=== PATIENT | female | born 1980 | race Caucasian/White ===

== ENCOUNTER 2016-09-20 19:19 | Emergency (ER) | payer BC ==
[~2016-09-20] VITALS: Ht 157.5 cm; Wt 124.7 kg
[2016-09-20 19:25] VITALS: BP 152/87
--- NOTE | 2016-09-20 19:29 | NUR ---
PT [facility]. TAKEN TO BED 6
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
--- NOTE | 2016-09-20 19:44 | NUR ---
Patient being evaluated by DR. SIMPSON at bedside.
[2016-09-20] MEDS ORDERED: NACL 0.9% 1,000 ML IV SCH (19:49)
[2016-09-20] MEDS ORDERED: KETOROLAC 30 MG/ML VIAL IVP ONE (19:50)
[2016-09-20] MEDS ORDERED: ONDANSETRON 4 MG/2 ML VIAL IVP ONE (19:50)
--- NOTE | 2016-09-20 20:10 | NUR ---
PT TAKEN TO CT
--- NOTE | 2016-09-20 20:10 | NUR ---
TAKEN FOR CT SCAN
[2016-09-20 21:50] VITALS: BP 137/72
--- NOTE | 2016-09-20 21:50 | NUR ---
Patient discharged with v/s stable. Written and verbal after care instructions given and explained. Patient alert, oriented and verbalized understanding of instructions. Ambulatory with steady gait. All questions addressed prior to discharge. ID band removed. Patient advised to follow up with PMD. Rx of TRAMADOL HYDROCHLORIDE 50MG PO given. Patient educated on indication of medication including possible reaction and side effects. Opportunity to ask questions provided and answered.
== END 2016-09-20 21:50 | disposition home or self-care (01) ==
LOC: MED 19:19
DX: S09.90XA Unspecified injury of head, initial encounter (principal); S40.011A Contusion of right shoulder, initial encounter; R03.0 Elevated blood-pressure reading, without diagnosis of hypertension; Z88.0 Allergy status to penicillin; V49.40XA Driver injured in collision with unspecified motor vehicles in traffic accident, initial encounter; Y93.89 Activity, other specified; Y92.89 Other specified places as the place of occurrence of the external cause; Y99.8 Other external cause status
CPT/HCPCS: 36415; 70450; 72125; 80053; 81001; 81025; 82150; 83690; 85025; 87086; 96361; 96374; 96375; 99285; J1885; J2405; J7030